=== PATIENT | female | born 1960 | race Caucasian/White ===

== ENCOUNTER 2018-03-03 20:33 | Emergency (ER) | payer MEDICARE, OTHER ==
[~2018-03-03] VITALS: Ht 175.3 cm; Wt 91.6 kg
--- NOTE | 2018-03-03 20:54 | ED Lower Extremity ---
General Chief Complaint: Lower Extremity Stated Complaint: L ANKLE PAIN Source: patient Exam Limitations: no limitations History of Present Illness Date Seen by Provider: Mar 03, 2018 Time Seen by Provider: 20:53 Initial Comments Patient is 57-year-old female who presents to the emergency room with left ankle pain. She reports that she's been having ankle pain for one month that yesterday she was walking and hit her ankle on a wooden box in her house and thinks she cracked a bone. Patient was able to ambulate to the room with minimal difficulty and pain and has been walking on the foot since the injury. She denies trying any vbbh-kkn-eqodxpi pain medication. Onset: yesterday Severity: mild Pain/Injury Location: left ankle Method of Injury: direct blow Modifying Factors: Improves With Movement Allergies and Home Medications Patient Home Medication List Home Medication List Reviewed: Yes Constitutional: see HPI; No chills, No diaphoresis, No dizziness, No fever EENTM: see HPI; No no symptoms reported, No ear discharge Respiratory: see HPI; No cough, No dyspnea on exertion Cardiovascular: see HPI; No chest pain, No edema, No Hx of Intervention Gastrointestinal: see HPI; No abdominal pain, No constipation Genitourinary: see HPI; No decreased output, No discharge Musculoskeletal: see HPI, joint pain Skin: see HPI (left ankle pain); No change in color, No change in hair/nails Psychiatric/Neurological: See HPI; Denies Anxiety, Denies Depressed All Other Systems Reviewed Negative Unless Noted: Yes Past Tguqrrx-Eftmzn-Vjjxgn Hx Past Med/Social Hx: Reviewed Nursing Past Med/Soc Hx Patient Social History Recent Foreign Travel: No Contact w/Someone Who Travel: No Family Medical History Reviewed Nursing Family Hx Physical Exam Vital Signs Vital Signs - First Documented 03/03/18 03/03/18 20:50 21:57 Temp 98.4 Pulse 100 Resp 20 B/P (MAP) 176/100 (125) Pulse Ox 97 O2 Delivery Room Air Capillary Refill : Height, Weight, BMI Height: ', " Weight: lbs oz, kg Method: ,BMI General Appearance: WD/WN, no apparent distress HEENT: PERRL/EOMI, normal ENT inspection, TMs normal, pharynx normal Neck: non-tender, full range of motion, supple, normal inspection Cardiovascular: regular rate, rhythm, no edema, no gallop, no JVD, no murmur Respiratory: chest non-tender, lungs clear, normal breath sounds, no respiratory distress, no accessory muscle use Gastrointestinal: normal bowel sounds, non tender, soft, no organomegaly, no pulsatile mass Back: normal inspection, no CVA tenderness, no vertebral tenderness Hips: bilateral hip non-tender, bilateral hip normal inspection, bilateral hip normal range of motion, bilateral hip no evidence of injury Legs: bilateral leg non-tender, bilateral leg normal inspection, bilateral leg normal range of motion, bilateral leg no evidence of injury Knees: bilateral knee non-tender, bilateral knee normal inspection, bilateral knee normal range of motion, bilateral knee no evidence of injury Ankles: right ankle non-tender, right ankle normal inspection, right ankle normal range of motion, right ankle no evidence of injury; left ankle abrasions/ lacerations (there is a small abrasion to the outside left ankle. There is a well-formed scab and appears older than 2 days.), left ankle pain, left ankle soft tissue tenderness Feet: bilateral foot non-tender, bilateral foot normal inspection, bilateral foot normal range of motion, bilateral foot no evidence of injury Neurologic/Tendon: normal sensation, normal motor functions, normal tendon functions, responds to pain, no evidence tendon injury Neurologic/Psychiatric: alert, normal mood/affect, oriented x 3 Skin: normal color, warm/dry, other (small abrasion as noted above.) Lymphatic: no adenopathy Progress/Results/Core Measures Results/Orders My Orders Orders - LINWOOD LUGO Ankle, Left, 3 Views (03/03/18 20:45) Vital Signs/I&O 03/03/18 03/03/18 20:50 21:57 Temp 98.4 98.4 Pulse 100 96 Resp 20 14 B/P (MAP) 176/100 (125) 155/113 Pulse Ox 97 O2 Delivery Room Air Room Air Progress Progress Note : Time: 21:43 Progress Note I informed the patient that there is no acute fracture to the left ankle. An air stirrup was provided in the emergency room for discomfort. The patient agrees with plan to discharge and follow up with Dr. Arana within 1 week. Diagnostic Imaging Diagonstic Imaging: Xray Plain Films/CT/US/NM/MRI: ankle Comments VIA [facility]. [place] NAME: GOLDIE SANTILLAN [employer] REC#: [id number] PT STATUS: REG ER : 1960 PHYSICIAN: LINWOOD LUGO ADMIT DATE: 03/03/18/ER Draft Date of Exam:03/03/18 ANKLE, LEFT, 3 VIEWS INDICATION: Left ankle pain EXAM: AP, oblique, and lateral views of the left ankle are obtained. FINDINGS: No acute fracture or acute bony abnormality is seen. There is plantar calcaneal spurring. IMPRESSION: No acute abnormality of the left ankle. Dictated on workstation # [id number] Dict: 03/03/[id number] Trans: 03/03/182126 [facility] [id number] Interpreted by: ESMER SÁNCHEZ MD Electronically signed by: Reviewed: Reviewed by Me Departure Impression Primary Impression: Contusion of ankle Qualified Codes: S90.02XA - Contusion of left ankle, initial encounter Disposition: HOME, SELF-CARE Condition: Stable/Unchanged Departure-Patient Inst. Decision time for Depature: 21:44 Referrals: NESTOR MIRANDA MD (PCP/Family) Primary Care Physician Patient Instructions: Contusion (DC) Add. Discharge Instructions: You may use the air stirrup as needed for discomfort in addition to ice at 20 minute intervals. You may take ibuprofen and Tylenol as directed by the bottle. Follow-up with your doctor within 1 week for recheck. Return back to the emergency room for any concerns as needed. All discharge instructions reviewed with patient and/or family. Voiced understanding. LINWOOD LUGO Mar 03, 2018 20:54
--- NOTE | 2018-03-03 21:28 | Diagnostic Imaging Report ---
INDICATION: Left ankle pain EXAM: AP, oblique, and lateral views of the left ankle are obtained. FINDINGS: No acute fracture or acute bony abnormality is seen. There is plantar calcaneal spurring. IMPRESSION: No acute abnormality of the left ankle. Dictated by: Dictated on workstation # [id number]
[2018-03-03 21:57] VITALS: BP 155/113
--- OUTSIDE RECORDS SUMMARY | 2018-03-03 23:30 | XMS REPORT ---
Author Author HARDIK ELLINGTON [facility] Address [address] [place] [address] Care Team Providers Care Canine Service Teacher Name Role Phone HARDIK ELLINGTON Unavailable PROBLEMS Type Condition ICD9-CM Code [id number] Code Onset Dates Condition Status SNOMED Code Problem GERD (gastroesophageal reflux disease) K21.9 Active 232517061 Problem PTSD (post-traumatic stress disorder) F43.10 Active 27908702 Problem Anxiety F41.9 Active 41595052 Problem control Z30.9 Active 08925048 Problem ADHD (attention deficit hyperactivity disorder) F90.9 Active 890315417 Problem Depression F32.9 Active 48282151 Problem History of fatty infiltration of liver Z87.19 Active 671961239 Problem ADHD (attention deficit hyperactivity disorder), inattentive type F90.0 Active 56483759 Problem Recurrent major depressive disorder, in partial remission F33.41 Active 91356921 Problem Major depression, chronic F32.9 Active 177882753 Problem Chronic post-traumatic stress disorder (PTSD) F43.12 Active 229139382 Problem MICHELLE (generalized anxiety disorder) F41.1 Active 40125922 ALLERGIES No Known Allergies ENCOUNTERS Encounter Location Date Diagnosis [facility] [id number] [address] Nov, [facility] [id number] [address] Nov, [facility] [address] [place] [address] Oct, [facility] [address] [place] [address] Oct, GERD (gastroesophageal reflux disease) K21.9 ; History of fatty infiltration of liver Z87.19 ; Family history of heart disease Z82.49 ; Routine adult health maintenance Z00.00 and Encounter for screening for malignant neoplasm of colon Z12.11 [facility] [id number] [address] Oct, Acute nasopharyngitis J00 [facility] [id number] [place] [address] 28 Sep, 2017 [facility] [address] [address] Aug, [facility] [id number] [address] Aug, Recurrent major depressive disorder, in partial remission F33.41 ; ADHD (attention deficit hyperactivity disorder), inattentive type F90.0 and PTSD (post-traumatic stress disorder) F43.10 [facility] [id number] [address] Jul, [facility] [address] [address] Jun, [facility] [id number] [address] May, Recurrent major depressive disorder, in partial remission F33.41 ; PTSD (post-traumatic stress disorder) F43.10 and ADHD (attention deficit hyperactivity disorder), inattentive type F90.0 [facility] [id number] [address] Apr, [facility] [id number] [address] Mar, [facility] [id number] [address] 14 Feb, 2017 [facility] [id number] [address] Jan, [facility] [id number] [address] Jan, ADHD (attention deficit hyperactivity disorder) F90.9 [facility] [address] [address] Jan, Recurrent major depressive disorder, in partial remission F33.41 ; MICHELLE (generalized anxiety disorder) F41.1 ; Chronic post-traumatic stress disorder (PTSD) F43.12 and ADHD (attention deficit hyperactivity disorder ) F90.9 [facility] [address] [place] [address] December, [facility] [id number] [place] [address] December, [facility] [id number] [place] [address] Nov, [facility] [id number] [place] [address] Oct, [facility] [id number] [place] [address] Oct, [facility] [id number] [place] [address] Oct, [facility] [address] [place] [address] Sep, [facility] [id number] [address] Sep, [facility] [address] [address] Sep, Recurrent major depressive disorder, in partial remission F33.41 ; PTSD (post-traumatic stress disorder) F43.10 and ADHD (attention deficit hyperactivity disorder) F90.9 [facility] [address] [place] [address] May, [facility] [id number] [place] [address] May, [facility] [id number] [address] May, [facility] [address] [address] May, [facility] [address] [address] May, [facility] [address] [address] Apr, Bronchitis J40 [facility] [id number] [place] [address] Apr, [facility] [address] [address] Apr, [facility] [address] [place] [address] December, [facility] [address] [address] December, GERD (gastroesophageal reflux disease) K21.9 and control Z30.9 [facility] [address] [address] Feb, Routine gynecological examination V72.31 ; Pap test, as part of routine gynecological examination V76.2 ; Screen for STD (sexually transmitted disease) V74.5 ; Breast cancer screening V76.10 ; Colon cancer screening V76.51 and Oral contraceptive pill surveillance V25.41 [facility] [address] [address] Nov, [facility] [address] [address] Nov, [facility] [address] [address] Jul, [facility] [address] [address] Jul, [facility] [address] [address] Jun, [facility] [id number] [address] Jun, [facility] [address] [address] Jun, [facility] [address] [address] Jun, [facility] [address] [address] Jun, [facility] [address] [address] Jun, [facility] [address] [address] Apr, [facility] [address] [address] Apr, IMMUNIZATIONS No Known Immunizations SOCIAL HISTORY Never Assessed REASON FOR VISIT f/catie Tubbs MA PLAN OF CARE Activity Details Follow Up 4 Months Reason: VITAL SIGNS Height 69 in 2017-01-30 Weight 196.1 lbs 2017-01-30 Heart Rate 88 bpm 2017-01-30 Respiratory Rate 20 2017-01-30 BMI 28.96 kg/m2 2017-01-30 Blood pressure systolic 170 mmHg 2017-01-30 Blood pressure diastolic 91 mmHg 2017-01-30 MEDICATIONS Medication Instructions Dosage Frequency Start Date End Date Duration Status Fluoxetine 40 mg by oral route each morning 2 Capsule Jun, Active Trazodone HCl 300 MG Orally Once a day 1 tablet at bedtime 24h Oct, Active Strattera 100 mg Orally Once each morning 1 capsule Apr, Active Adderall XR 10 mg Orally Once at 2pm for ADHD 1 capsule December, Active BusPIRone HCl 15 mg Orally Twice a day 1 tablet 12h Oct, Active Effexor XR 150 MG Orally Once a day 2 capsule with food 24h Oct, Active Adderall XR 20 mg Orally Once a day for ADHD 1 Capsule December, Active Junel FE 09/13 1 mg-20 mcg Orally Once a day TAKE ONE TABLET BY MOUTH DAILY 24h 28 Active Nexium 40 mg Orally Once a day 1 capsule 24h 04 May, 2016 30 day(s) Active RESULTS No Results PROCEDURES No Known procedures INSTRUCTIONS MEDICATIONS ADMINISTERED No Known Medications MEDICAL (GENERAL) HISTORY Type Description Date Medical History gastrointestinal disorder Hiatal Hernia Medical History Psychiatric disorders Depression , anxiety Medical History ADHD Medical History Cervical CA-with cone biopsy 1987 Surgical History sinus surgery 2000 Hospitalization History Childhood panic - hospitalized for heart eval 1971
--- OUTSIDE RECORDS SUMMARY | 2018-03-03 23:30 | XMS REPORT ---
Author Author HARDIK ELLINGTON Organization [facility] Address [address] [place] [address] Care Team Providers Care Cipher Expert Name Role Phone HARDIK ELLINGTON Unavailable PROBLEMS Type Condition ICD9-CM Code [id number] Code Onset Dates Condition Status SNOMED Code Problem ADHD (attention deficit hyperactivity disorder) F90.9 Active 460025440 Problem GERD (gastroesophageal reflux disease) K21.9 Active 739437710 Problem Depression F32.9 Active 71593263 Problem control Z30.9 Active 73045697 Problem MICHELLE (generalized anxiety disorder) F41.1 Active 57805000 Problem Chronic post-traumatic stress disorder (PTSD) F43.12 Active 989981121 Problem PTSD (post-traumatic stress disorder) F43.10 Active 29796561 Problem Anxiety F41.9 Active 31957461 Problem Recurrent major depressive disorder, in partial remission F33.41 Active 07793615 Problem Major depression, chronic F32.9 Active 109879114 ALLERGIES No Information SOCIAL HISTORY Never Assessed PLAN OF CARE VITAL SIGNS MEDICATIONS Medication Instructions Dosage Frequency Start Date End Date Duration Status Adderall XR 10 mg Orally Once at 2pm for ADHD 1 capsule Sep, 28 days Active Adderall XR 20 mg Orally Once a day for ADHD 1 Capsule Jun, 28 days Active RESULTS No Results PROCEDURES No Known procedures IMMUNIZATIONS No Known Immunizations MEDICAL (GENERAL) HISTORY Type Description Date Medical History gastrointestinal disorder Hiatal Hernia Medical History Psychiatric disorders Depression , anxiety Medical History ADHD Medical History Cervical CA-with cone biopsy 1987 Surgical History sinus surgery 2000 Hospitalization History Childhood panic - hospitalized for heart eval 1970
--- OUTSIDE RECORDS SUMMARY | 2018-03-03 23:30 | XMS REPORT ---
Author RUDY Mortensen Organization [employer] Address Unknown Phone Unavailable Care Team Providers Care Substation Engineer Name Role Phone RUDY STARKS Unavailable Allergies No Known Allergies Problems Problem Type Condition Code Onset Dates Condition Status Problem ADHD (attention deficit hyperactivity disorder) F90.9 Active Problem Anxiety F41.9 Active Problem Depression F32.9 Active Problem GERD (gastroesophageal reflux disease) K21.9 Active Problem control Z30.9 Active Medications Medication Code System Code Instructions Start Date End Date Status Dosage 09/13 [facility] [id number] 1 mg-20 mcg Orally Once a day TAKE ONE TABLET BY MOUTH DAILY Results No Known Results Summary Purpose [employer] Submission
--- OUTSIDE RECORDS SUMMARY | 2018-03-03 23:30 | XMS REPORT ---
Author Author HARDIK ELLINGTON Organization [facility] Address [address] [place] [address] Care Team Providers Care Leather Products Supervisor Name Role Phone HARDIK ELLINGTON Unavailable PROBLEMS Type Condition ICD9-CM Code POO94-FU Code Onset Dates Condition Status SNOMED Code Problem ADHD (attention deficit hyperactivity disorder) F90.9 Active 663712272 Problem GERD (gastroesophageal reflux disease) K21.9 Active 070759317 Problem Depression F32.9 Active 53397226 Problem control Z30.9 Active 66913292 Problem MICHELLE (generalized anxiety disorder) F41.1 Active 58084685 Problem Chronic post-traumatic stress disorder (PTSD) F43.12 Active 273433929 Problem PTSD (post-traumatic stress disorder) F43.10 Active 03329269 Problem Anxiety F41.9 Active 01650888 Problem Recurrent major depressive disorder, in partial remission F33.41 Active 12561210 Problem Major depression, chronic F32.9 Active 334201564 ALLERGIES No Information SOCIAL HISTORY Never Assessed PLAN OF CARE VITAL SIGNS MEDICATIONS Unknown Medications RESULTS No Results PROCEDURES No Known procedures IMMUNIZATIONS No Known Immunizations MEDICAL (GENERAL) HISTORY Type Description Date Medical History gastrointestinal disorder Hiatal Hernia Medical History Psychiatric disorders Depression , anxiety Medical History ADHD Medical History Cervical CA-with cone biopsy 1987 Surgical History sinus surgery 2000 Hospitalization History Childhood panic - hospitalized for heart eval 1971
--- OUTSIDE RECORDS SUMMARY | 2018-03-03 23:30 | XMS REPORT ---
Author Author HARDIK ELLINGTON Organization [facility] Address [address] [place] [address] Care Team Providers Care Bee Farmer Name Role Phone HARDIK ELLINGTON Unavailable PROBLEMS Type Condition ICD9-CM Code [id number] Code Onset Dates Condition Status SNOMED Code Problem Depression F32.9 Active 38854150 Problem Anxiety F41.9 Active 28948105 Problem GERD (gastroesophageal reflux disease) K21.9 Active 724513935 Problem control Z30.9 Active 28460396 Problem ADHD (attention deficit hyperactivity disorder) F90.9 Active 919549077 Problem ADHD (attention deficit hyperactivity disorder), inattentive type F90.0 Active 66043750 Problem Chronic post-traumatic stress disorder (PTSD) F43.12 Active 601022854 Problem Major depression, chronic F32.9 Active 517545462 Problem PTSD (post-traumatic stress disorder) F43.10 Active 52409871 Problem MICHELLE (generalized anxiety disorder) F41.1 Active 80688323 Problem Recurrent major depressive disorder, in partial remission F33.41 Active 81243698 ALLERGIES No Information SOCIAL HISTORY Never Assessed [...]
--- OUTSIDE RECORDS SUMMARY | 2018-03-03 23:30 | XMS REPORT ---
Author Author HARDIK ELLINGTON Organization [facility] Address [address] [place] [address] Care Team Providers Care Rn Perioperative Name Role Phone HARDIK ELLINGTON Unavailable PROBLEMS Type Condition ICD9-CM Code OCE79-SS Code Onset Dates Condition Status SNOMED Code Problem ADHD (attention deficit hyperactivity disorder) F90.9 Active 610816611 Problem GERD (gastroesophageal reflux disease) K21.9 Active 351125360 Problem Depression F32.9 Active 22359292 Problem control Z30.9 Active 96561395 Problem MICHELLE (generalized anxiety disorder) F41.1 Active 31643811 Problem Chronic post-traumatic stress disorder (PTSD) F43.12 Active 835900119 Problem PTSD (post-traumatic stress disorder) F43.10 Active 91763861 Problem Anxiety F41.9 Active 81129812 Problem Recurrent major depressive disorder, in partial remission F33.41 Active 42878239 Problem Major depression, chronic F32.9 Active 645468470 ALLERGIES No Information SOCIAL HISTORY Never Assessed PLAN OF CARE VITAL SIGNS MEDICATIONS Medication Instructions Dosage Frequency Start Date End Date Duration Status Adderall XR 10 mg Orally Once at 2pm for ADHD 1 capsule Oct, 28 days Active Trazodone HCl 300 MG Orally Once a day 1 tablet at bedtime 24h Oct, 30 day(s) Active BusPIRone HCl 15 MG Orally Twice a day 1 tablet 12h Oct, 30 days Active Adderall XR 20 mg Orally Once a day for ADHD 1 Capsule Oct, 28 days Active RESULTS No Results PROCEDURES [...]
--- OUTSIDE RECORDS SUMMARY | 2018-03-03 23:30 | XMS REPORT ---
Author Author RUDY STARKS [facility] Address [address] [place] [address] Care Team Providers Care Overhead Cleaner Maintainer Name Role Phone RUDY STARKS Unavailable PROBLEMS Type Condition ICD9-CM Code TAO28-UI Code Onset Dates Condition Status SNOMED Code Problem Depression F32.9 Active 62806614 Problem ADHD (attention deficit hyperactivity disorder) F90.9 Active 403427916 Problem control Z30.9 Active 62593180 Problem Anxiety F41.9 Active 67003849 Problem GERD (gastroesophageal reflux disease) K21.9 Active 388765575 ALLERGIES Unknown Allergies SOCIAL HISTORY No smoking Hx information available PLAN OF CARE VITAL SIGNS MEDICATIONS Unknown Medications RESULTS No Results PROCEDURES No Known procedures IMMUNIZATIONS No Known Immunizations
--- OUTSIDE RECORDS SUMMARY | 2018-03-03 23:30 | XMS REPORT ---
Author Author HARDIK ELLINGTON [facility] Address [address] [place] [address] Care Team Providers Care Project Management Intern Name Role Phone HARDIK ELLINGTON Unavailable PROBLEMS Type Condition ICD9-CM Code IKY09-DG Code Onset Dates Condition Status SNOMED Code Problem GERD (gastroesophageal reflux disease) K21.9 Active 162942571 Problem PTSD (post-traumatic stress disorder) F43.10 Active 25881922 Problem Anxiety F41.9 Active 46259730 Problem control Z30.9 Active 83193989 Problem ADHD (attention deficit hyperactivity disorder) F90.9 Active 230034872 Problem Depression F32.9 Active 74558251 Problem History of fatty infiltration of liver Z87.19 Active 334707721 Problem ADHD (attention deficit hyperactivity disorder), inattentive type F90.0 Active 34451227 Problem Recurrent major depressive disorder, in partial remission F33.41 Active 81826526 Problem Major depression, chronic F32.9 Active 655798088 Problem Chronic post-traumatic stress disorder (PTSD) F43.12 Active 680914681 Problem MICHELLE (generalized anxiety disorder) F41.1 Active 00541730 ALLERGIES No Information ENCOUNTERS Encounter Location Date Diagnosis [facility] [address] [address] Nov, [facility] [id number] [place] [address] Nov, [facility] [id number] [place] [address] 4[address] Oct, GERD (gastroesophageal reflux disease) K21.9 [facility] [address] [place] [address]- 0[address] Oct, GERD (gastroesophageal reflux disease) K21.9 ; History of fatty infiltration of liver Z87.19 ; Family history of heart disease Z82.49 ; Routine adult health maintenance Z00.00 and Encounter for screening for malignant neoplasm of colon Z12.11 [facility] [address] [address] Oct, Acute nasopharyngitis J00 [facility] [address] [address] 28 Sep, 2017 [facility] [id number] [place] [address] Aug, [place] [address] [address] Aug, Recurrent major depressive disorder, in partial remission F33.41 ; ADHD (attention deficit hyperactivity disorder), inattentive type F90.0 and PTSD (post-traumatic stress disorder) F43.10 [place] [address] [address] Jul, [place] [address] [address] Jun, [facility] [address] [address] May, Recurrent major depressive disorder, in partial remission F33.41 ; PTSD (post-traumatic stress disorder) F43.10 and ADHD (attention deficit hyperactivity disorder), inattentive type F90.0 [facility] [address] [address] 13 Apr, 2017 [facility] [address] [address] Mar, [facility] [address] [address] 14 Feb, 2017 [facility] [address] [address] Jan, [facility] [address] [address] Jan, ADHD (attention deficit hyperactivity disorder) F90.9 [facility] [address] [address] Jan, Recurrent major depressive disorder, in partial remission F33.41 ; MICHELLE (generalized anxiety disorder) F41.1 ; Chronic post-traumatic stress disorder (PTSD) F43.12 and ADHD (attention deficit hyperactivity disorder ) F90.9 [facility] [address] [address] December, [facility] [id number] [address] December, [facility] [id number] [place] [address], [place] [address] Nov, [facility] [id number] [address] Oct, [facility] [id number] [place] [address]- 278[address] Oct, [facility] [id number] [address] Oct, [facility] [id number] [address] Sep, [facility] [address] [address] Sep, [facility] [id number] [address] Sep, Recurrent major depressive disorder, in partial remission F33.41 ; PTSD (post-traumatic stress disorder) F43.10 and ADHD (attention deficit hyperactivity disorder) F90.9 [facility] [address] [address] May, [facility] [id number] [address] May, [facility] [id number] [address] May, [facility] [address] [address] [address] May, [facility] [address] [address] May, [facility] [address] [address] Apr, Bronchitis J40 [facility] [address] [place] [address] 951837- 6398 Apr, [facility] [address] [place] [address] 835542- 5442 Apr, [facility] [address] [address] December, [facility] [address] [place] [address] 026353- 4432 December, GERD (gastroesophageal reflux disease) K21.9 and control Z30.9 [facility] [address] [address] Feb, Routine gynecological examination V72.31 ; Pap test, as part of routine gynecological examination V76.2 ; Screen for STD (sexually transmitted disease) V74.5 ; Breast cancer screening V76.10 ; Colon cancer screening V76.51 and Oral contraceptive pill surveillance V25.41 [facility] [address] [address] 14 Nov, 2014 [facility] [address] Nov, [facility] [address] [address] Jul, [facility] [address] Jul, [facility] [address] [address] [address] Jun, [facility] [address] [facility] [id number] [address] Jun, [facility] [id number] [address]- [address] Jun, [facility] [id number] [address]- 6[address] Jun, [facility] [address] [address]- 3[address] Jun, [facility] [id number] [address]- 8736 Jun, [facility] [id number] [address]- 6[address] Apr, [facility] [id number] [address]- 37[address] Apr, IMMUNIZATIONS No Known Immunizations SOCIAL HISTORY Never Assessed REASON FOR VISIT adderall 03/13/2017 PLAN OF CARE VITAL SIGNS MEDICATIONS Medication Instructions Dosage Frequency Start Date End Date Duration Status Adderall XR 20 mg Orally Once a day for ADHD 1 Capsule Feb, 28 days Active Adderall XR 10 mg Orally Once at 2pm for ADHD 1 capsule Feb, 28 days Active RESULTS No Results PROCEDURES [...]
--- OUTSIDE RECORDS SUMMARY | 2018-03-03 23:31 | XMS REPORT ---
Author Author HARDIK ELLINGTON [facility] Address [address] [place] [address] Care Team Providers Care Child Support Agent Name Role Phone HARDIK ELLINGTON Unavailable PROBLEMS Type Condition ICD9-CM Code QBD03-UH Code Onset Dates Condition Status SNOMED Code Problem Anxiety F41.9 Active 66316526 Problem Major depression, chronic F32.9 Active 304181566 Problem PTSD (post-traumatic stress disorder) F43.10 Active 68917408 Problem control Z30.9 Active 99886493 Problem ADHD (attention deficit hyperactivity disorder) F90.9 Active 050221784 Problem Depression F32.9 Active 07970216 Problem GERD (gastroesophageal reflux disease) K21.9 Active 062797271 Problem History of fatty infiltration of liver Z87.19 Active 016548151 Problem Encounter for drug screening Z02.83 Active 194463660 Problem MICHELLE (generalized anxiety disorder) F41.1 Active 61899768 Problem Recurrent major depressive disorder, in partial remission F33.41 Active 48511612 Problem ADHD (attention deficit hyperactivity disorder), inattentive type F90.0 Active 14586029 Problem Chronic post-traumatic stress disorder (PTSD) F43.12 Active 913576692 ALLERGIES No Information ENCOUNTERS Encounter Location Date Diagnosis [facility] [id number] [address]- [address] Mar, [facility] [id number] [address]- [address] December, [facility] [address] [place] [address] 69199- [address] Nov, [facility] [id number] [address]- [address]107 Nov, Recurrent major depressive disorder, in partial remission F33.41 ; Encounter for drug screening Z02.83 ; ADHD (attention deficit hyperactivity disorder), inattentive type F90.0 ; Chronic post-traumatic stress disorder (PTSD) F43.12 ; Family history of heart disease Z82.49 and History of fatty infiltration of liver Z87.19 [place] [id number] [place] [address]78- 3875 22 Oct, 2017 GERD (gastroesophageal reflux disease) K21.9 [place] [id number] [place] [address]35- 6146 08 Oct, 2017 GERD (gastroesophageal reflux disease) K21.9 ; History of fatty infiltration of liver Z87.19 ; Family history of heart disease Z82.49 ; Routine adult health maintenance Z00.00 and Encounter for screening for malignant neoplasm of colon Z12.11 [place] [id number] [place] [address]4260- 9234 07 Oct, 2017 Acute nasopharyngitis J00 [place] [id number] [place] [address] 44953- 7365 28 Sep, 2017 [place] [id number] [place] [address] 35712- 9191 Aug, [place] [address] [address]- [address] Aug, Recurrent major depressive disorder, in partial remission F33.41 ; ADHD (attention deficit hyperactivity disorder), inattentive type F90.0 and PTSD (post-traumatic stress disorder) F43.10 [place] [id number] [place] [address] 10664- 0626 Jul, [place] [id number] [place] [address] 56378- 5235 Jun, [place] [id number] [place] [address] 78177- 5300 May, Recurrent major depressive disorder, in partial remission F33.41 ; PTSD (post-traumatic stress disorder) F43.10 and ADHD (attention deficit hyperactivity disorder), inattentive type F90.0 [place] [address] [place] [address]- 7[address] 13 Apr, 2017 [facility] [address], [place] [address]- 9[address] Mar, [facility] [address], [place] [address]- 3232 Feb, [facility] [address], [place] [address]- 9676 Jan, [facility] [address], [place] [address]- 9202 Jan, ADHD (attention deficit hyperactivity disorder) F90.9 [facility] [address] [place] [address] 49578- 1389 Jan, Recurrent major depressive disorder, in partial remission F33.41 ; MICHELLE (generalized anxiety disorder) F41.1 ; Chronic post-traumatic stress disorder (PTSD) F43.12 and ADHD (attention deficit hyperactivity disorder ) F90.9 [facility] [address] [address]- 4960 December, [facility] [address] [address] [address] December, [facility] [address], [place] [address]- 0853 Nov, [facility] [address], [place] [address]- 3029 Oct, [facility] [address], [place] [address]- 6685 Oct, [facility] [address] [address] Oct, [facility] [address] [address] Sep, [facility] [address] [address] Sep, [facility] [address] [address]20 Sep, 2017 Recurrent major depressive disorder, in partial remission F33.41 ; PTSD (post-traumatic stress disorder) F43.10 and ADHD (attention deficit hyperactivity disorder) F90.9 [facility] [address], [place] [address]- 6496 May, [facility] [id number] [place] [address] 35972- 2219 May, [facility] [id number] [place] [address] 17417- 8497 May, [facility] [id number] [place] [address] 88459- 7286 May, [facility] [id number] [place] [address] 69845- 5827 May, [facility] [id number] [place] [address] 12815- 4343 Apr, Bronchitis J40 [facility] [id number] [place] [address] 80127- 0060 Apr, [facility] [id number] [place] [address] 61080- 9016 Apr, [facility] [address] [place] [address] 52965- 4225 December, [facility] [id number] [place] [address] 09176- 4454 December, GERD (gastroesophageal reflux disease) K21.9 and control Z30.9 [facility] [id number] [place] [address] 029051- 9767 Feb, Routine gynecological examination V72.31 ; Pap test, as part of routine gynecological examination V76.2 ; Screen for STD (sexually transmitted disease) V74.5 ; Breast cancer screening V76.10 ; Colon cancer screening V76.51 and Oral contraceptive pill surveillance V25.41 [place] [address], [place] [address]- 2662 Nov, [facility] [address], [place] [address]- 5836 Nov, [facility] [address], [place] [address]- 8097 Jul, [facility] [address] [place] [address] 92063- 3899 Jul, [facility] [address], [place] [address]- 6083 Jun, [facility] [address] [place] [address] 38071- 4982 Jun, [facility] [address], [place] [address]- 6708 Jun, [facility] [address] [address]- 9711 Jun, [facility] [address], [place] [address]- 7649 Jun, [facility] [address], [place] [address]- 8270 Jun, [facility] [address], [place] [address]- 5497 Apr, [facility] [address], [place] [address]- 4914 Apr, IMMUNIZATIONS No Known Immunizations SOCIAL HISTORY Never Assessed REASON FOR VISIT adderall 07/31/2017 PLAN OF CARE VITAL SIGNS MEDICATIONS Medication Instructions Dosage Frequency Start Date End Date Duration Status Adderall XR 20 mg Orally Once a day for ADHD 1 Capsule Jul, 28 days Active Adderall XR 10 mg Orally Once at 2pm for ADHD 1 capsule Jul, 28 days Active RESULTS No Results PROCEDURES No Known procedures INSTRUCTIONS MEDICATIONS ADMINISTERED No Known Medications MEDICAL (GENERAL) HISTORY Type Description Date Medical History gastrointestinal disorder Hiatal Hernia Medical History Psychiatric disorders Depression , anxiety Medical History ADHD Medical History Cervical CA-with cone biopsy 1988 Surgical History sinus surgery 2000 Hospitalization History Childhood panic - hospitalized for heart eval 1971
--- OUTSIDE RECORDS SUMMARY | 2018-03-03 23:31 | XMS REPORT ---
Author Author HARDIK ELLINGTON [facility] Address [address] [place] [address] Care Team Providers Care Energy Systems Engineer Name Role Phone HARDIK ELLINGTON Unavailable PROBLEMS Type Condition ICD9-CM Code [id number] Code Onset Dates Condition Status SNOMED Code Problem GERD (gastroesophageal reflux disease) K21.9 Active 993938187 Problem PTSD (post-traumatic stress disorder) F43.10 Active 81701967 Problem Anxiety F41.9 Active 17726026 Problem control Z30.9 Active 03310401 Problem ADHD (attention deficit hyperactivity disorder) F90.9 Active 774508971 Problem Depression F32.9 Active 61381005 Problem History of fatty infiltration of liver Z87.19 Active 223238142 Problem ADHD (attention deficit hyperactivity disorder), inattentive type F90.0 Active 38579281 Problem Recurrent major depressive disorder, in partial remission F33.41 Active 19573133 Problem Major depression, chronic F32.9 Active 780906339 Problem Chronic post-traumatic stress disorder (PTSD) F43.12 Active 924679240 Problem MICHELLE (generalized anxiety disorder) F41.1 Active 33739816 ALLERGIES No Information ENCOUNTERS Encounter Location Date Diagnosis [facility] [id number], [place] [address] Nov, [facility] [address], [place] [address] Nov, [facility] [id number] [place] [address]- [address] Oct, [facility] [address] [place] [address]- 7[address] Oct, GERD (gastroesophageal reflux disease) K21.9 ; History of fatty infiltration of liver Z87.19 ; Family history of heart disease Z82.49 ; Routine adult health maintenance Z00.00 and Encounter for screening for malignant neoplasm of colon Z12.11 [facility] [address], [place] [address] Oct, Acute nasopharyngitis J00 [facility] [id number], [place] [address] 28 Sep, 2017 [facility] [address], [place] [address] Aug, [facility] [address], [place] [address] Aug, Recurrent major depressive disorder, in partial remission F33.41 ; ADHD (attention deficit hyperactivity disorder), inattentive type F90.0 and PTSD (post-traumatic stress disorder) F43.10 [facility] [address], [place] [address] Jul, [facility] [id number], [place] [address] Jun, [facility] [address], [place] [address] May, Recurrent major depressive disorder, in partial remission F33.41 ; PTSD (post-traumatic stress disorder) F43.10 and ADHD (attention deficit hyperactivity disorder), inattentive type F90.0 [facility] [address], [place] [address] Apr, [facility] [id number], [place] [address] Mar, [facility] [id number], [place] [address] 14 Feb, 2017 [facility] [address], [place] [address] 16 Jan, 2017 [facility] [id number], [place] [address] Jan, ADHD (attention deficit hyperactivity disorder) F90.9 [facility] [address], [place] [address] Jan, Recurrent major depressive disorder, in partial remission F33.41 ; MICHELLE (generalized anxiety disorder) F41.1 ; Chronic post-traumatic stress disorder (PTSD) F43.12 and ADHD (attention deficit hyperactivity disorder ) F90.9 [facility] [address] [place] [address] December, [facility] [id number] [place] [address]- 2356 December, [facility] [id number] [place] [address], [place] [address] Nov, [facility] [id number] [place] [address], [place] [address] Oct, [facility] [id number] [place] [address]- 9267 Oct, [facility] [id number] [place] [address] Oct, [facility] [id number] [place] [address], [place] [address] Sep, [facility] [id number], [place] [address] Sep, [facility] [id number], [place] [address] 39[address] Sep, Recurrent major depressive disorder, in partial remission F33.41 ; PTSD (post-traumatic stress disorder) F43.10 and ADHD (attention deficit hyperactivity disorder) F90.9 [facility] [id number] [address] May, [facility] [id number] [place] [address] May, [facility] [id number], [place] [address] May, [facility] [address], [place] [address] 57[address] May, [facility] [id number], [place] [address] May, [facility] [id number], [place] [address] Apr, Bronchitis J40 [facility] [id number] [place] [address]- 66[address] 08 Apr, 2016 [facility] [id number] [place] [address]- [address]1 Apr, [facility] [id number] [place] [address]- 7149 December, [facility] [address], [place] [address] December, GERD (gastroesophageal reflux disease) K21.9 and control Z30.9 [facility] [address], [place] [address] Feb, Routine gynecological examination V72.31 ; Pap test, as part of routine gynecological examination V76.2 ; Screen for STD (sexually transmitted disease) V74.5 ; Breast cancer screening V76.10 ; Colon cancer screening V76.51 and Oral contraceptive pill surveillance V25.41 [facility] [address], [place] [address] Nov, [facility] [address], [place] [address] Nov, [facility] [address] [address] [address] Jul, [facility] [address] [address] Jul, [facility] [address], [place] [address]- 9465 Jun, [facility] [id number] [address] Jun, [facility] [address], [place] [address]- 9[address] Jun, [facility] [id number] [address] Jun, [facility] [id number] [address] Jun, [facility] [id number], [place] [address] Jun, [facility] [id number], [place] [address]- 9904 Apr, [facility] [address], [place] [address]- 39[address] Apr, IMMUNIZATIONS No Known Immunizations SOCIAL HISTORY Never Assessed REASON FOR VISIT adderall xr10 mg 02/13/2017 PLAN OF CARE VITAL SIGNS MEDICATIONS Medication Instructions Dosage Frequency Start Date End Date Duration Status Adderall XR 10 mg Orally Once at 2pm for ADHD 1 capsule Jan, 28 days Active RESULTS No Results PROCEDURES [...]
--- OUTSIDE RECORDS SUMMARY | 2018-03-03 23:31 | XMS REPORT ---
Author Author HARDIK ELLINGTON [facility] Address [address] [place] [address] Care Team Providers Care Music Coordinator Name Role Phone HARDIK ELLINGTON Unavailable PROBLEMS Type Condition ICD9-CM Code [id number] Code Onset Dates Condition Status SNOMED Code Problem Anxiety F41.9 Active 27576215 Problem Major depression, chronic F32.9 Active 793240806 Problem PTSD (post-traumatic stress disorder) F43.10 Active 72243259 Problem control Z30.9 Active 22676706 Problem ADHD (attention deficit hyperactivity disorder) F90.9 Active 895794140 Problem Depression F32.9 Active 91007155 Problem GERD (gastroesophageal reflux disease) K21.9 Active 092491626 Problem History of fatty infiltration of liver Z87.19 Active 517405469 Problem Encounter for drug screening Z02.83 Active 053817548 Problem MICHELLE (generalized anxiety disorder) F41.1 Active 88156823 Problem Recurrent major depressive disorder, in partial remission F33.41 Active 76250069 Problem ADHD (attention deficit hyperactivity disorder), inattentive type F90.0 Active 29695049 Problem Chronic post-traumatic stress disorder (PTSD) F43.12 Active 314219933 ALLERGIES No Known Allergies ENCOUNTERS Encounter Location Date Diagnosis [facility] [id number], [place] [address] Mar, [facility] [address], [place] [address]- [address] Jan, [facility] [id number], [place] [address]- 64[address] Jan, [facility] [id number], [place] [address]- 3560 Jan, [facility] [address], [place] [address]- [address] December, [place] [address], [place] [address]- [address] Nov, [place] [id number] [place] [address]- [address] Nov, Recurrent major depressive disorder, in partial remission F33.41 ; Encounter for drug screening Z02.83 ; ADHD (attention deficit hyperactivity disorder), inattentive type F90.0 ; Chronic post-traumatic stress disorder (PTSD) F43.12 ; Family history of heart disease Z82.49 and History of fatty infiltration of liver Z87.19 [place] [id number] [place] [address]- [address] 22 Oct, 2017 GERD (gastroesophageal reflux disease) K21.9 [place] [id number] [place] [address] 24279- 3395 08 Oct, 2017 GERD (gastroesophageal reflux disease) K21.9 ; History of fatty infiltration of liver Z87.19 ; Family history of heart disease Z82.49 ; Routine adult health maintenance Z00.00 and Encounter for screening for malignant neoplasm of colon Z12.11 [place] [id number] [place] [address] 00875- 3545 Oct, Acute nasopharyngitis J00 [place] [id number] [place] [address] 72179- 4702 Sep, [place] [id number] [place] [address] 79372- 5054 Aug, [place] [id number] [place] [address] 36418- 9839 Aug, Recurrent major depressive disorder, in partial remission F33.41 ; ADHD (attention deficit hyperactivity disorder), inattentive type F90.0 and PTSD (post-traumatic stress disorder) F43.10 [place] [address], [place] [address]- [address] Jul, [place] [id number] [place] [address] 49747- 9140 Jun, [facility] [address], [place] [address]- 7[address] May, Recurrent major depressive disorder, in partial remission F33.41 ; PTSD (post-traumatic stress disorder) F43.10 and ADHD (attention deficit hyperactivity disorder), inattentive type F90.0 [facility] [id number] [place] [address] 23794- 7346 Apr, [facility] [id number] [place] [address] 59822- 3402 Mar, [facility] [id number] [place] [address] 02335- 2225 Feb, [facility] [id number] [place] [address] 77906- 0526 Jan, [facility] [id number] [place] [address] 91004- 9035 Jan, ADHD (attention deficit hyperactivity disorder) F90.9 [facility] [address], [place] [address]- 1380 Jan, Recurrent major depressive disorder, in partial remission F33.41 ; MICHELLE (generalized anxiety disorder) F41.1 ; Chronic post-traumatic stress disorder (PTSD) F43.12 and ADHD (attention deficit hyperactivity disorder ) F90.9 [facility] [address], [place] [address]- 4784 December, [facility] [id number], [place] [address]- 7[address] December, [facility] [id number], [place] [address]- 9779 Nov, [facility] [id number] [address] Oct, [facility] [id number], [place] [address]- 9529 Oct, [facility] [address], [place] [address]- 0502 Oct, [facility] [id number] [place] [address] 83783- 3983 Sep, [facility] [id number] [place] [address] 05622- 0609 Sep, [facility] [id number] [place] [address] 39617- 1899 Sep, Recurrent major depressive disorder, in partial remission F33.41 ; PTSD (post-traumatic stress disorder) F43.10 and ADHD (attention deficit hyperactivity disorder) F90.9 [facility] [id number] [place] [address] 31035- 6737 May, [facility] [id number] [place] [address] 19809- 1889 May, [facility] [id number] [place] [address] 36495- 5761 May, [facility] [id number] [place] [address] 37435- 0597 May, [facility] [id number] [place] [address] 33869- 4730 May, [facility] [address], [place] [address]- 2429 Apr, Bronchitis J40 [facility] [id number], [place] [address]- 9981 Apr, [facility] [address], [place] [address]- 5455 Apr, [facility] [id number] [place] [address] 48452- 8102 December, [facility] [address], [place] [address]- 5609 December, GERD (gastroesophageal reflux disease) K21.9 and control Z30.9 [facility] [address], [place] [address]- 2036 02 Feb, 2015 Routine gynecological examination V72.31 ; Pap test, as part of routine gynecological examination V76.2 ; Screen for STD (sexually transmitted disease) V74.5 ; Breast cancer screening V76.10 ; Colon cancer screening V76.51 and Oral contraceptive pill surveillance V25.41 [facility] [id number] [place] [address] 17440- 3716 14 Nov, 2014 [facility] [address], [place] [address]- 3220 13 Nov, 2014 [facility] [id number] [place] [address] 14024- 2788 Jul, [facility] [id number], [place] [address]- 1431 Jul, [facility] [id number] [place] [address] 35529- 4172 Jun, [facility] [address], [place] [address]- 4540 Jun, [facility] [id number] [place] [address] 22537- 1565 Jun, [facility] [address], [place] [address]- 5808 Jun, [facility] [id number], [place] [address]- 6662 Jun, [facility] [id number], [place] [address]- 6373 Jun, [facility] [id number], [place] [address]- 3902 Apr, [facility] [address], [place] [address]- 3815 Apr, IMMUNIZATIONS No Known Immunizations SOCIAL HISTORY Never Assessed REASON FOR VISIT f/u PLAN OF CARE Activity Details Follow Up 4 Months Reason: VITAL SIGNS Height 69 in 2017-08-28 Weight 193.2 lbs 2017-08-28 Heart Rate 88 bpm 2017-08-28 Respiratory Rate 20 2017-08-28 BMI 28.53 kg/m2 2017-08-28 Blood pressure systolic 150 mmHg 2017-08-28 Blood pressure diastolic 82 mmHg 2017-08-28 MEDICATIONS Medication Instructions Dosage Frequency Start Date End Date Duration Status Adderall XR 10 mg Orally Once at 2pm for ADHD 1 capsule Aug, Active Adderall XR 20 mg Orally Once a day for ADHD 1 Capsule Aug, Active Junel FE 09/13 1 mg-20 mcg Orally Once a day TAKE ONE TABLET BY MOUTH DAILY 24h 28 Not-Taking Effexor XR 150 MG Orally Once a day for depression 2 capsule with food Oct, Active Nexium 40 mg Orally Once a day 1 capsule 24h December, 30 day(s) Active Fluoxetine 40 mg by oral route each morning for depression 2 Capsule Jun, Active Strattera 100 mg Orally Once each morning for ADHD 1 capsule Apr, Active Trazodone HCl 300 MG Orally Once a day for sleep 1 tablet at bedtime Oct, Active BusPIRone HCl 15 mg Orally Twice a day for anxiety 1 tablet Oct, Active RESULTS No Results PROCEDURES No Known [...]
--- OUTSIDE RECORDS SUMMARY | 2018-03-03 23:31 | XMS REPORT ---
Author Author HARDIK ELLINGTON [facility] Address [address] [place] [address] Care Team Providers Care Channel Marketing Specialist Name Role Phone HARDIK ELLINGTON Unavailable PROBLEMS Type Condition ICD9-CM Code [id number] Code Onset Dates Condition Status SNOMED Code Problem Anxiety F41.9 Active 31409982 Problem Major depression, chronic F32.9 Active 030955159 Problem PTSD (post-traumatic stress disorder) F43.10 Active 53699226 Problem control Z30.9 Active 40368449 Problem ADHD (attention deficit hyperactivity disorder) F90.9 Active 011767873 Problem Depression F32.9 Active 79869850 Problem GERD (gastroesophageal reflux disease) K21.9 Active 234177577 Problem History of fatty infiltration of liver Z87.19 Active 741475716 Problem Encounter for drug screening Z02.83 Active 427965353 Problem MICHELLE (generalized anxiety disorder) F41.1 Active 75871722 Problem Recurrent major depressive disorder, in partial remission F33.41 Active 21194864 Problem ADHD (attention deficit hyperactivity disorder), inattentive type F90.0 Active 31345541 Problem Chronic post-traumatic stress disorder (PTSD) F43.12 Active 395822368 ALLERGIES No Known Allergies ENCOUNTERS Encounter Location Date Diagnosis [facility] [id number] [address] Mar, [facility] [id number] [address] Nov, [facility] [id number] [place] [address]- [address] 03 Nov, 2017 Recurrent major depressive disorder, in partial remission F33.41 ; Encounter for drug screening Z02.83 ; ADHD (attention deficit hyperactivity disorder), inattentive type F90.0 ; Chronic post-traumatic stress disorder (PTSD) F43.12 ; Family history of heart disease Z82.49 and History of fatty infiltration of liver Z87.19 [id number] [address] 22 Oct, 2017 GERD (gastroesophageal reflux disease) K21.9 [address] [address] 08 Oct, 2017 GERD (gastroesophageal reflux disease) K21.9 ; History of fatty infiltration of liver Z87.19 ; Family history of heart disease Z82.49 ; Routine adult health maintenance Z00.00 and Encounter for screening for malignant neoplasm of colon Z12.11 [address] [address] 07 Oct, 2017 Acute nasopharyngitis J00 [address] [id number] [address] 28 Sep, 2017 [place] [id number] [address] Aug, [place] [address] [address] Aug, Recurrent major depressive disorder, in partial remission F33.41 ; ADHD (attention deficit hyperactivity disorder), inattentive type F90.0 and PTSD (post-traumatic stress disorder) F43.10 [address] [address] Jul, [place] [address] [address] Jun, [place] [address] [address] 5[address] May, Recurrent major depressive disorder, in partial remission F33.41 ; PTSD (post-traumatic stress disorder) F43.10 and ADHD (attention deficit hyperactivity disorder), inattentive type F90.0 [place] [address] Apr, [place] [id number] [address] Mar, [facility] [address] [address] Feb, [facility] [address] [address] Jan, [facility] [address] [address] Jan, ADHD (attention deficit hyperactivity disorder) F90.9 [facility] [address] [address] Jan, Recurrent major depressive disorder, in partial remission F33.41 ; MICHELLE (generalized anxiety disorder) F41.1 ; Chronic post-traumatic stress disorder (PTSD) F43.12 and ADHD (attention deficit hyperactivity disorder ) F90.9 [facility] [address] [address] December, [facility] [address] [address] December, [facility] [address] [address] Nov, [facility] [address] [address] Oct, [facility] [address] [address] Oct, [facility] [address] [address] Oct, [facility] [address] [address] Sep, [facility] [address] [address] [address] Sep, [facility] [address] [address] 07 Feb, 2017 Recurrent major depressive disorder, in partial remission F33.41 ; PTSD (post-traumatic stress disorder) F43.10 and ADHD (attention deficit hyperactivity disorder) F90.9 [facility] [id number] [address] May, [facility] [address] [address] May, [facility] [id number] [place] [address]- 8[address] May, [facility] [id number] [place] [address] 15[address]- 7826 May, [facility] [id number] [place] [address] 259[address]- 5199 May, [facility] [id number] [place] [address] 7[address]- 0024 Apr, Bronchitis J40 [facility] [id number] [place] [address]- 57[address] Apr, [facility] [id number] [place] [address] 45[address]- 5857 Apr, [facility] [id number] [place] [address] 100[address]- 5091 December, [facility] [address] [address] December, GERD (gastroesophageal reflux disease) K21.9 and control Z30.9 [facility] [address] [address] Feb, Routine gynecological examination V72.31 ; Pap test, as part of routine gynecological examination V76.2 ; Screen for STD (sexually transmitted disease) V74.5 ; Breast cancer screening V76.10 ; Colon cancer screening V76.51 and Oral contraceptive pill surveillance V25.41 [facility] [address] [address] Nov, [facility] [address] [address] Nov, [facility] [address] [address]- [address] Jul, [facility] [address], [place] [address] Jul, [facility] [address] [address] 64[address] Jun, [facility] [address] [address] 48[address] Jun, [facility] [address] [address]- 86[address] Jun, [facility] [address] [address]- 0[address] Jun, [facility] [address] [address]- 0[address] Jun, [facility] [address] [address] 6[address] Jun, [facility] [address] [address]- 7[address] Apr, [facility] [address] [address] Apr, IMMUNIZATIONS No Known Immunizations SOCIAL HISTORY Never Assessed REASON FOR VISIT f/u Zach PLAN OF CARE Activity Details Follow Up 3 Months Reason: VITAL SIGNS Height 69 in 2017-06-05 Weight 189.9 lbs 2017-06-05 Heart Rate 80 bpm 2017-06-05 Respiratory Rate 18 2017-06-05 BMI 28.04 kg/m2 2017-06-05 Blood pressure systolic 144 mmHg 2017-06-05 Blood pressure diastolic 88 mmHg 2017-06-05 MEDICATIONS Medication Instructions Dosage Frequency Start Date End Date Duration Status Effexor XR 150 MG Orally Once a day 2 capsule with food 24h Oct, Active Trazodone HCl 300 MG Orally Once a day 1 tablet at bedtime 24h Oct, Active Nexium 40 mg Orally Once a day 1 capsule 24h December, 30 day(s) Active Adderall XR 20 mg Orally Once a day for ADHD 1 Capsule May, 28 days Active BusPIRone HCl 15 mg Orally Twice a day 1 tablet 12h Oct, Active Strattera 100 mg Orally Once each morning 1 capsule Apr, Active Fluoxetine 40 mg by oral route each morning 2 Capsule Jun, Active Adderall XR 10 mg Orally Once at 2pm for ADHD 1 capsule May, 28 days Active RESULTS No Results PROCEDURES [...]
--- OUTSIDE RECORDS SUMMARY | 2018-03-03 23:31 | XMS REPORT ---
Author RUDY Mortensen Organization [employer] Address Unknown Phone Unavailable Care Team Providers Care Financial Reporting Advisor Name Role Phone RUDY STARKS CP Unavailable Allergies No Known Allergies Problems Problem Type Condition Code Onset Dates Condition Status Problem ADHD (attention deficit hyperactivity disorder) F90.9 Active Problem Anxiety F41.9 Active Problem Depression F32.9 Active Problem GERD (gastroesophageal reflux disease) K21.9 Active Problem control Z30.9 Active Medications No Known Medications Results No Known Results Summary Purpose [employer] Submission
--- OUTSIDE RECORDS SUMMARY | 2018-03-03 23:31 | XMS REPORT ---
Author Author HARDIK ELLINGTON Organization [facility] Address [address] [place] [address] Care Team Providers Care Rn Cvor Name Role Phone HARDIK ELLINGTON Unavailable PROBLEMS Type Condition ICD9-CM Code AGW78-GP Code Onset Dates Condition Status SNOMED Code Problem Depression F32.9 Active 12481737 Problem Anxiety F41.9 Active 37149917 Problem GERD (gastroesophageal reflux disease) K21.9 Active 818417643 Problem control Z30.9 Active 03785944 Problem ADHD (attention deficit hyperactivity disorder) F90.9 Active 835598539 Problem ADHD (attention deficit hyperactivity disorder), inattentive type F90.0 Active 00550257 Problem Chronic post-traumatic stress disorder (PTSD) F43.12 Active 900358069 Problem Major depression, chronic F32.9 Active 940831454 Problem PTSD (post-traumatic stress disorder) F43.10 Active 01577319 Problem MICHELLE (generalized anxiety disorder) F41.1 Active 38678942 Problem Recurrent major depressive disorder, in partial remission F33.41 Active 92008190 ALLERGIES No Information SOCIAL HISTORY Never Assessed PLAN OF CARE VITAL SIGNS MEDICATIONS Medication Instructions Dosage Frequency Start Date End Date Duration Status Adderall XR 20 mg Orally Once a day for ADHD 1 Capsule December, 28 days Active Adderall XR 10 mg Orally Once at 2pm for ADHD 1 capsule December, 28 days Active RESULTS No Results PROCEDURES [...]
--- OUTSIDE RECORDS SUMMARY | 2018-03-03 23:32 | XMS REPORT ---
Author Author HARDIK ELLINGTON [facility] Address [address] [place] [address] Care Team Providers Care Axminster Weaver Name Role Phone HARDIK ELLINGTON Unavailable PROBLEMS Type Condition ICD9-CM Code KZM07-UP Code Onset Dates Condition Status SNOMED Code Problem Anxiety F41.9 Active 50549959 Problem Major depression, chronic F32.9 Active 759523741 Problem PTSD (post-traumatic stress disorder) F43.10 Active 09068938 Problem control Z30.9 Active 56200421 Problem ADHD (attention deficit hyperactivity disorder) F90.9 Active 448290687 Problem Depression F32.9 Active 97465255 Problem GERD (gastroesophageal reflux disease) K21.9 Active 373551039 Problem History of fatty infiltration of liver Z87.19 Active 365719551 Problem Encounter for drug screening Z02.83 Active 757590353 Problem MICHELLE (generalized anxiety disorder) F41.1 Active 23602017 Problem Recurrent major depressive disorder, in partial remission F33.41 Active 15455779 Problem ADHD (attention deficit hyperactivity disorder), inattentive type F90.0 Active 96602216 Problem Chronic post-traumatic stress disorder (PTSD) F43.12 Active 566963870 ALLERGIES No Information ENCOUNTERS Encounter Location Date Diagnosis [facility] [id number] [address] 02 Mar, 2018 [facility] [id number] [address] 03 Nov, 2018 Recurrent major depressive disorder, in partial remission F33.41 ; Encounter for drug screening Z02.83 ; ADHD (attention deficit hyperactivity disorder), inattentive type F90.0 ; Chronic post-traumatic stress disorder (PTSD) F43.12 ; Family history of heart disease Z82.49 and History of fatty infiltration of liver Z87.19 [facility] [id number] [address]- [address] Oct, GERD (gastroesophageal reflux disease) K21.9 [place] [id number] [place] [address]- 277[address] 08 Oct, 2017 GERD (gastroesophageal reflux disease) K21.9 ; History of fatty infiltration of liver Z87.19 ; Family history of heart disease Z82.49 ; Routine adult health maintenance Z00.00 and Encounter for screening for malignant neoplasm of colon Z12.11 [address] [place] [id number] [place] [address]- 5488 07 Oct, 2017 Acute nasopharyngitis J00 [address] [id number] [place] [address] 73568- 6065 28 Sep, 2017 [place] [place] [id number] [place] [address] 02815- 4290 Aug, [place] [id number] [place] [address] 83075- 9832 Aug, Recurrent major depressive disorder, in partial remission F33.41 ; ADHD (attention deficit hyperactivity disorder), inattentive type F90.0 and PTSD (post-traumatic stress disorder) F43.10 [id number] [place] [address] 00296- 9814 Jul, [place] [id number] [place] [address] 34654- 9481 Jun, [address] [id number] [place] [address] 91883- 6613 May, Recurrent major depressive disorder, in partial remission F33.41 ; PTSD (post-traumatic stress disorder) F43.10 and ADHD (attention deficit hyperactivity disorder), inattentive type F90.0 [place] [id number] [place] [address] 96149- 3635 13 Apr, 2017 [place] [id number] [place] [address] 53549- 0576 Mar, [place] [id number] [address]- 89[address] Feb, [facility] [address] [address]- [address] Jan, [facility] [address] [address] 2546 Jan, ADHD (attention deficit hyperactivity disorder) F90.9 [facility] [address] [address] 2546 Jan, Recurrent major depressive disorder, in partial remission F33.41 ; MICHELLE (generalized anxiety disorder) F41.1 ; Chronic post-traumatic stress disorder (PTSD) F43.12 and ADHD (attention deficit hyperactivity disorder ) F90.9 [facility] [address] [address]- 25[address] December, [facility] [id number] [address]- 9056 December, [facility] [address] [address]- 4218 Nov, [facility] [id number] [address]- 7066 Oct, [facility] [id number] [address]- 8696 Oct, [facility] [id number] [address]- 2056 Oct, [facility] [id number] [address] 2546 Sep, [facility] [id number] [address]- 7906 Sep, [facility] [address] [address] Sep, Recurrent major depressive disorder, in partial remission F33.41 ; PTSD (post-traumatic stress disorder) F43.10 and ADHD (attention deficit hyperactivity disorder) F90.9 [facility] [address] [address]- 0598 May, [facility] [id number] [place] [address] 30580- 5147 May, [facility] [address] [address]- 8463 May, [facility] [id number] [place] [address] 18227- 9172 May, [facility] [id number] [place] [address] 62236- 8800 May, [facility] [id number] [place] [address] 98155- 8254 Apr, Bronchitis J40 [facility] [id number] [place] [address] 37634- 4669 Apr, [facility] [id number] [place] [address] 92317- 6988 Apr, [facility] [id number] [place] [address] 84171- 3609 December, [facility] [id number] [place] [address] 94450- 2937 December, GERD (gastroesophageal reflux disease) K21.9 and control Z30.9 [facility] [address] [place] [address] 89930- 8182 Feb, Routine gynecological examination V72.31 ; Pap test, as part of routine gynecological examination V76.2 ; Screen for STD (sexually transmitted disease) V74.5 ; Breast cancer screening V76.10 ; Colon cancer screening V76.51 and Oral contraceptive pill surveillance V25.41 [facility] [address] [address]- 1314 14 Nov, 2014 [facility] [address] [address]- 6311 Nov, [facility] [address] [facility] [id number] [address]- 54[address] Jul, [facility] [address] [facility] [id number] [address]- 7428 Jul, [facility] [address] [facility] [id number] [address]- 7445 Jun, [facility] [address] [facility] [id number] [address]- 8752 Jun, [facility] [address] [facility] [id number] [address]- 1203 Jun, [facility] [address] [facility] [id number] [address]- 2197 Jun, [facility] [id number] [address]- 1394 Jun, [facility] [id number] [address]- 2040 Jun, [facility] [id number] [address]- 1072 Apr, [facility] [id number] [address]- 5571 Apr, IMMUNIZATIONS No Known Immunizations SOCIAL HISTORY Never Assessed REASON FOR VISIT adderall 05/08/2017 PLAN OF CARE VITAL SIGNS MEDICATIONS Medication Instructions Dosage Frequency Start Date End Date Duration Status Adderall XR 10 mg Orally Once at 2pm for ADHD 1 capsule Apr, 28 days Active Adderall XR 20 mg Orally Once a day for ADHD 1 Capsule Apr, 28 days Active RESULTS No Results PROCEDURES [...]
--- OUTSIDE RECORDS SUMMARY | 2018-03-03 23:32 | XMS REPORT ---
Author RUDY Mortensen Organization [employer] Address Unknown Phone Unavailable Care Team Providers Care General Office Associate Name Role Phone RUDY STARKS CP Unavailable [...]
--- OUTSIDE RECORDS SUMMARY | 2018-03-03 23:33 | XMS REPORT ---
Author Author HARDIK ELLINGTON [facility] Address [address] [place] [address] Care Team Providers Care Tnt Line Supervisor Name Role Phone HARDIK ELLINGTON Unavailable PROBLEMS Type Condition ICD9-CM Code OPQ73-BC Code Onset Dates Condition Status SNOMED Code Problem GERD (gastroesophageal reflux disease) K21.9 Active 088518601 Problem PTSD (post-traumatic stress disorder) F43.10 Active 35137282 Problem Anxiety F41.9 Active 80209140 Problem control Z30.9 Active 50795460 Problem ADHD (attention deficit hyperactivity disorder) F90.9 Active 898660898 Problem Depression F32.9 Active 65976524 Problem History of fatty infiltration of liver Z87.19 Active 762058490 Problem ADHD (attention deficit hyperactivity disorder), inattentive type F90.0 Active 39805566 Problem Recurrent major depressive disorder, in partial remission F33.41 Active 47773373 Problem Major depression, chronic F32.9 Active 776010470 Problem Chronic post-traumatic stress disorder (PTSD) F43.12 Active 457765614 Problem MICHELLE (generalized anxiety disorder) F41.1 Active 92394447 ALLERGIES No Information ENCOUNTERS Encounter Location Date Diagnosis [facility] [id number] [address] Nov, [facility] [address] [address] Nov, [facility] [address] [place] [address] Oct, [facility] [address] [place] [address] Oct, GERD (gastroesophageal reflux disease) K21.9 ; History of fatty infiltration of liver Z87.19 ; Family history of heart disease Z82.49 ; Routine adult health maintenance Z00.00 and Encounter for screening for malignant neoplasm of colon Z12.11 [facility] [address] [address] Oct, Acute nasopharyngitis J00 [facility] [id number] [address] 28 Sep, 2017 [facility] [address] [address] Aug, [facility] [address] [address] Aug, Recurrent major depressive disorder, in partial remission F33.41 ; ADHD (attention deficit hyperactivity disorder), inattentive type F90.0 and PTSD (post-traumatic stress disorder) F43.10 [facility] [address] [address] Jul, [facility] [id number] [address] Jun, [facility] [address] [address] May, Recurrent major depressive disorder, in partial remission F33.41 ; PTSD (post-traumatic stress disorder) F43.10 and ADHD (attention deficit hyperactivity disorder), inattentive type F90.0 [facility] [address] [address] Apr, [facility] [address] [address] Mar, [facility] [id number] [address] 14 Feb, 2017 [facility] [address] [address] 16 Jan, 2017 [facility] [id number] [address] Jan, ADHD (attention deficit hyperactivity disorder) F90.9 [facility] [address] [address] Jan, Recurrent major depressive disorder, in partial remission F33.41 ; MICHELLE (generalized anxiety disorder) F41.1 ; Chronic post-traumatic stress disorder (PTSD) F43.12 and ADHD (attention deficit hyperactivity disorder ) F90.9 [facility] [address] [place] [address] December, [facility] [id number] [place] [address] December, [facility] [id number] [place] [address], [place] [address] Nov, [facility] [id number] [place] [address], [place] [address] Oct, [facility] [id number] [place] [address] Oct, [facility] [id number] [place] [address] Oct, [facility] [id number] [place] [address], [place] [address] Sep, [facility] [id number] [address] Sep, [facility] [id number] [address] Sep, Recurrent major depressive disorder, in partial remission F33.41 ; PTSD (post-traumatic stress disorder) F43.10 and ADHD (attention deficit hyperactivity disorder) F90.9 [facility] [id number] [address] May, [facility] [id number] [place] [address] May, [facility] [id number] [address] May, [facility] [address] [address] May, [facility] [address] [address] May, [facility] [address] [address] Apr, Bronchitis J40 [facility] [id number] [place] [address] 08 Apr, 2016 [facility] [address] [place] [address] Apr, [facility] [address] [place] [address] December, [facility] [address] [address] December, GERD (gastroesophageal reflux disease) K21.9 and control Z30.9 [facility] [address] [address] Feb, Routine gynecological examination V72.31 ; Pap test, as part of routine gynecological examination V76.2 ; Screen for STD (sexually transmitted disease) V74.5 ; Breast cancer screening V76.10 ; Colon cancer screening V76.51 and Oral contraceptive pill surveillance V25.41 [facility] [address] [address] Nov, [facility] [address] [address] Nov, [facility] [address] Jul, [facility] [address] [address] Jul, [facility] [address] [address] Jun, [facility] [id number] [address]- [address] Jun, [facility] [address] [address] Jun, [facility] [address] [address] Jun, [facility] [address] [address] Jun, [facility] [address] [address] Jun, [facility] [address] [address] Apr, [facility] [address] [address] Apr, IMMUNIZATIONS No Known Immunizations SOCIAL HISTORY Never Assessed REASON FOR VISIT adderall xr 20 mg 02/13/2017 PLAN OF CARE VITAL SIGNS MEDICATIONS Medication Instructions Dosage Frequency Start Date End Date Duration Status Adderall XR 20 mg Orally Once a day for ADHD 1 Capsule Jan, Active RESULTS No Results PROCEDURES No Known [...]
--- OUTSIDE RECORDS SUMMARY | 2018-03-03 23:33 | XMS REPORT ---
Author Author RUDY STARKS [facility] Address [address] [place] [address] Care Team Providers Care Collator Name Role Phone RUDY STARKS Unavailable PROBLEMS Type Condition ICD9-CM Code UXN23-AP Code Onset Dates Condition Status SNOMED Code Problem Depression F32.9 Active 57968905 Problem ADHD (attention deficit hyperactivity disorder) F90.9 Active 231752055 Problem control Z30.9 Active 17840270 Problem Anxiety F41.9 Active 89007752 Problem GERD (gastroesophageal reflux disease) K21.9 Active 266769114 ALLERGIES Unknown Allergies SOCIAL HISTORY No smoking Hx information available PLAN OF CARE VITAL SIGNS MEDICATIONS Unknown Medications RESULTS No Results PROCEDURES No Known procedures IMMUNIZATIONS No Known Immunizations
--- OUTSIDE RECORDS SUMMARY | 2018-03-03 23:33 | XMS REPORT | Continuity of Care Document ---
Author Author [facility] Address Unknown Phone Unavailable Allergies There is no data. Medications There is no data. Problems Date Dx Coded Attending Type Code Diagnosis Diagnosed By 05/24/2014 KUNAL CASTILLO APRN 300.00 AN ANXIETY UNSPEC 05/24/2014 KUNAL CASTILLO APRN 311 DEPRESSIVE DISORDER NOS 05/24/2014 KUNAL CASTILLO APRN 314.00 ADHD INATTENTIVE 05/24/2014 HARDIK ELLINGTON APRN 300.00 AN ANXIETY UNSPEC 05/24/2014 HARDIK ELLINGTON APRN 311 DEPRESSIVE DISORDER NOS 05/24/2014 HARDIK ELLINGTON APRN 314.00 ADHD INATTENTIVE 05/24/2014 HARDIK ELLINGTON APRN 300.00 AN ANXIETY UNSPEC 05/24/2014 HARDIK ELLINGTON APRN 311 DEPRESSIVE DISORDER NOS 05/24/2014 HARDIK ELLINGTON APRN 314.00 ADHD INATTENTIVE 05/24/2014 RAN MACKENZIE DDS 300.00 AN ANXIETY UNSPEC 05/24/2014 MACKENZIE DDS, RAN 311 DEPRESSIVE DISORDER NOS 05/24/2014 MACKENZIE SHILOS, RAN 314.00 ADHD INATTENTIVE 05/24/2014 MARYAM ALEX PEDRO R 300.00 AN ANXIETY UNSPEC 05/24/2014 MARYAM ALEX PEDRO R 311 DEPRESSIVE DISORDER NOS 05/24/2014 MARYAM ALEX PEDRO R 314.00 ADHD INATTENTIVE 07/14/2014 HARDIK ELLINGTON APRN 296.33 MO DEPRESSIVE RECURRENT SEVERE W/O PSYCHOTIC BEHAVIOR 07/14/2014 HARIDK ELLINGTON APRN 309.81 AN PTSD 07/14/2014 HARDIK ELLINGTON APRN 296.33 MO DEPRESSIVE RECURRENT SEVERE W/O PSYCHOTIC BEHAVIOR 07/14/2014 HARDIK ELLINGTON APRN 309.81 AN PTSD 07/14/2014 RAN MACKENZIE DDS 296.33 MO DEPRESSIVE RECURRENT SEVERE W/O PSYCHOTIC BEHAVIOR 07/14/2014 AVRIL BEAVERSRAN 309.81 AN PTSD 07/14/2014 PEDRO FRANCISCO APRN 296.33 MO DEPRESSIVE RECURRENT SEVERE W/O PSYCHOTIC BEHAVIOR 07/14/2014 PEDRO FRANCISCO APRN 309.81 AN PTSD 12/15/2014 PEDRO FRANCISCO APRN 530.81 GERD 12/15/2014 PEDRO FRANCISCO APRN V70.0 ROUTINE GENERAL MEDICAL EXAMINATION AT A HEALTH CARE FACILITY Procedures There is no data. Results Test Result Range PDM - AMPHETAMINES W/ REFLEX d/l ISOMERS - 11/25/17 11:20 Prescribed Drug 1 Adderall(TM) NRG COMMENT NRG Amphetamine 2557 ng/mL <250 medMATCH Amphetamine CONSISTENT NRG Methamphetamine NEGATIVE ng/mL <250 medMATCH Methamphetamine CONSISTENT NRG Encounters ACCT No. Visit Date/Time Discharge Status Pt. Type Provider Facility Loc./Unit Complaint [id number] 12/15/2014 09:53:00 12/15/2014 23:59:59 CLS Outpatient PEDRO FRANCISCO APRN [id number] 11/17/2014 07:58:00 11/17/2014 23:59:59 CLS Outpatient AVRIL LAORAN Wiley [id number] 07/14/2014 11:48:00 07/14/2014 23:59:59 CLS Outpatient HARDIK ELLINGTON APRN [id number] 07/14/2014 11:48:00 07/14/2014 23:59:59 CLS Outpatient HARDIK ELLINGTON APRN [id number] 05/24/2014 13:45:00 05/24/2014 23:59:59 CLS Outpatient KUNAL CASTILLO APRN [id number] 02/16/2018 09:20:00 02/16/2018 23:59:59 CLS Outpatient ARNULFO CLARK [facility] [id number] 11/25/2017 10:40:00 Document Registration [id number] 03/19/2017 23:44:33 03/19/2017 23:59:59 CLS Outpatient
--- OUTSIDE RECORDS SUMMARY | 2018-03-03 23:33 | XMS REPORT ---
Author Author HARDIK ELLINGTON Organization [facility] Address [address] [place] [address] Care Team Providers Care Digital Press Operator Name Role Phone HARDIK ELLINGTON Unavailable PROBLEMS Type Condition ICD9-CM Code [id number] Code Onset Dates Condition Status SNOMED Code Problem ADHD (attention deficit hyperactivity disorder) F90.9 Active 902909334 Problem GERD (gastroesophageal reflux disease) K21.9 Active 096186148 Problem Depression F32.9 Active 45802688 Problem control Z30.9 Active 47112766 Problem MICHELLE (generalized anxiety disorder) F41.1 Active 99855245 Problem Chronic post-traumatic stress disorder (PTSD) F43.12 Active 007868411 Problem PTSD (post-traumatic stress disorder) F43.10 Active 59274413 Problem Anxiety F41.9 Active 17974697 Problem Recurrent major depressive disorder, in partial remission F33.41 Active 70695596 Problem Major depression, chronic F32.9 Active 290180194 ALLERGIES No Known Allergies SOCIAL HISTORY Never Assessed PLAN OF CARE Activity Details Follow Up 4 Months Reason: VITAL SIGNS Height 69 in 2016-10-01 Weight 192.2 lbs 2016-10-01 Heart Rate 108 bpm 2016-10-01 Respiratory Rate 20 2016-10-01 BMI 28.38 kg/m2 2016-10-01 Blood pressure systolic 190 mmHg 2016-10-01 Blood pressure diastolic 90 mmHg 2016-10-01 MEDICATIONS Medication Instructions Dosage Frequency Start Date End Date Duration Status trazodone 300 mg orally at bedtime for sleep 1 tablet Jul, Active Strattera 100 mg Orally Once each morning 1 capsule Apr, Active buspirone 15 mg by oral route 2 times a day for anxeity 1 tablet Apr, Active 09/13 1 mg-20 mcg Orally Once a day TAKE ONE TABLET BY MOUTH DAILY 24h 28 Active Fluoxetine 40 mg by oral route each morning 2 Capsule Jun, Active Nexium 40 mg Orally Once a day 1 capsule 24h December, 30 day(s) Active Adderall XR 20 MG Orally Once a day for ADHD 1 Capsule Jun, Active Adderall XR 10 mg Orally Once at 2pm for ADHD 1 capsule Sep, Active RESULTS Name Result Date Reference Range URINE DRUG SCREEN (IN HOUSE) 2016-10-01 Lot # [id number] Exp date Control + COCAINE Negative AMPH Positive MTD Negative THC Negative OPIATE Negative BENZO Negative PCP Negative BAR Negative OXY Negative MAMP Negative TCA Negative BUP Negative MDMA Negative PROCEDURES Procedure Date Ordered Result Body Site DRUG TEST PRSMV DIR OPT OBS Oct 01, 2016 IMMUNIZATIONS No Known Immunizations MEDICAL (GENERAL) HISTORY Type Description Date Medical History gastrointestinal disorder Hiatal Hernia Medical History Psychiatric disorders Depression , anxiety Medical History ADHD Medical History Cervical CA-with cone biopsy 1987 Surgical History sinus surgery 2000 Hospitalization History Childhood panic - hospitalized for heart eval 1971
--- OUTSIDE RECORDS SUMMARY | 2018-03-03 23:33 | XMS REPORT ---
Author Author NESTOR MIRANDA [facility] Address [address] [place] [address] Care Team Providers Care Charge Out Clerk Name Role Phone NESTOR MIRANDA Unavailable PROBLEMS Type Condition ICD9-CM Code [id number] Code Onset Dates Condition Status SNOMED Code Problem Depression F32.9 Active 11671275 Problem ADHD (attention deficit hyperactivity disorder) F90.9 Active 990937312 Problem control Z30.9 Active 99862261 Assessment Bronchitis J40 Apr, Active 10568328 Problem Anxiety F41.9 Active 16447221 Problem GERD (gastroesophageal reflux disease) K21.9 Active 054702459 ALLERGIES Substance Reaction Event Type Date Status N.K.D.A. Unknown Non Drug Allergy Apr, Unknown SOCIAL HISTORY No smoking Hx information available PLAN OF CARE VITAL SIGNS Height 69 in 2016-05-02 Weight 192 lbs 2016-05-02 Heart Rate 80 bpm 2016-05-02 Respiratory Rate 18 2016-05-02 Oximetry 98 % 2016-05-02 BMI 28.35 kg/m2 2016-05-02 Blood pressure systolic 146 mmHg 2016-05-02 Blood pressure diastolic 96 mmHg 2016-05-02 MEDICATIONS Medication Instructions Dosage Frequency Start Date End Date Duration Status Strattera 100 MG Orally Once a day 1 capsule 24h Apr, Active Effexor XR 150 mg 2 Capsule by Oral route 1 time per day Jun, Active Fluoxetine 40 mg 2 Capsule by Oral route 1 time per day Jun, Active Junel FE 09/13 1 mg-20 mcg TAKE ONE TABLET BY MOUTH DAILY 28 Active Adderall XR 30 mg 1 Capsule by Oral route 1 time per day for ADHD Jun, Active Levaquin 500 MG Orally Once a day 1 tablet 24h Apr, Apr, 07 days Active buspirone 15 mg 1 Tablet by Oral route 3 times per day for anxiety Apr, Active trazodone 300 mg 1 Tablet by Oral route 1 time per day PRN qHS Jul, Active Nexium 40 mg Orally Once a day 1 capsule 24h December, 30 day(s) Active RESULTS Name Result Date Reference Range Xray : Chest (IN HOUSE) 2016-05-02 PROCEDURES Procedure Date Ordered Related Diagnosis Body Site MEASURE BLOOD OXYGEN LEVEL May 02, 2016 CHEST X-RAY May 02, 2016 Office Visit, Est Pt., Level 3 May 02, 2016 IMMUNIZATIONS No Known Immunizations
--- OUTSIDE RECORDS SUMMARY | 2018-03-03 23:33 | XMS REPORT ---
Author RUDY Mortensen Organization [employer] Address Unknown Phone Unavailable Care Team Providers Care Strategic Buyer Name Role Phone RUDY STARKS CP Unavailable [...]
== END 2018-03-03 21:56 | disposition home or self-care (01) ==
LOC: EDUNIT# 20:33 → ER 20:35
DX: S90.02XA Contusion of left ankle, initial encounter (principal); W22.8XXA Striking against or struck by other objects, initial encounter; Y93.01 Activity, walking, marching and hiking
CPT/HCPCS: 73610